=== PATIENT | female | born 1950 | race Caucasian/White ===

== ENCOUNTER 2016-08-08 03:28 | Inpatient (IN) | payer MEDICARE, OTHER ==
--- NOTE | ~2016-08-08 | HP ---
History And Physical [place] [address] [place]. [address] NAME: ROBERTO JOYNER : 46 STATUS : ADM IN [facility]#: [id number] AGE: 66 ADM/REG DATE : 08/08/16 MR#: [id number] REPORT SERV DATE: 08/08/16 DICTATED BY: MELVIN WRIGHT DATE: 08/08/16 REPORT STATUS : Draft TRANSCRIBED BY: MODL DATE: 08/08/16 DATE OF ADMISSION: 08/08/2016 CHIEF COMPLAINT: A 66-year-old female, presenting with abdominal pain and distention, extreme nausea. HISTORY OF PRESENT ILLNESS: The patient's history was obtained through careful interview with the patient and coupled with review of [facility] medical records. The patient states on the evening of 08/03/2016, she began to develop severe nausea, but on the day of admission, it became excruciating by the patient and her 's description. The patient has described mostly left upper quadrant abdominal pain that radiates to the back and throughout the abdomen, sometimes all the way down into her left groin, it a cramping like quality mostly. She describes it as a 10/10 in severity. She has had ostomy output, but it looks atypical, mostly watery now, with no bulky stool seen. She has developed a headache at the top of her head, stating "it is just going to blow off," and she has had an abnormal flushing of her face. No vomiting and states that she is "unable" to vomit because of previous her Brandon fundoplication. No shortness of breath. No chest pain. No cough. No fevers or chills. REVIEW OF SYSTEMS: Otherwise, a 14-point review of systems was obtained and was negative. PAST MEDICAL HISTORY: 1. Coronary artery disease, yet a negative catheterization of the heart in 2012. 2. Ischemic colitis with colon resection, followed by Dr. Joni Linn and Dr. Armenta, geriatric nursing assistant. 3. Diabetes. 4. Hypertension. 5. Severe reflux with Brandon fundoplication. 6. Depression and anxiety. 7. Chronic back pain, resolved. 8. Colon polyps. 9. Peptic ulcer disease. 10.Thoracentesis for pleural effusion. 11.Diastolic congestive heart failure. 12.Urinary tract infection. 13.Upper extremity DVT. 14.Scleroderma. History And Physical [facility] [address] [place]. [address] NAME: ROBERTO JOYNER : 46 STATUS : ADM IN [facility]#: [id number] AGE: 66 ADM/REG DATE : 08/08/16 MR#: [id number] REPORT SERV DATE: 08/08/16 DICTATED BY: MELVIN WRIGHT DATE: 08/08/16 REPORT STATUS : Draft TRANSCRIBED BY: RAMONA DATE: 08/08/16 PAST SURGICAL HISTORY: 1. Significant colon resection with ostomy placement for ischemic colitis, followed by Dr. Joni Linn. 2. Adhesiolysis. 3. Brandon fundoplication. 4. Appendectomy. 5. Cholecystectomy. 6. Hysterectomy. 7. Foot surgery. ALLERGIES: NO KNOWN DRUG ALLERGIES. SOCIAL HISTORY: Quit smoking in 1989. No alcohol abuse. She is . Lives in [place], [place]. Has two sons, four grandchildren. FAMILY HISTORY: Mother at 58 years of age of a heart attack. Father at 84 years of age with prostate cancer. Brother at 52 years of age with cancer. Had a sister with lung cancer. Strong family history of diabetes. CURRENT MEDICATIONS: Unknown at this time, but have been requested by Pharmacy. PHYSICAL EXAMINATION: VITAL SIGNS: Temperature 96.8, pulse 105, blood pressure 238/119, respiratory rate 18, O2 saturation 100% on room air. GENERAL: Very ill and even toxic-appearing female, in evidence of distress secondary to nausea and what appears to be excruciating abdominal pain. HEENT: Noted extreme flushing of her face. Pupils equal, round, and reactive to light. No conjunctival pallor. No scleral icterus. Nares are patent. Oropharynx is clear of obstruction. Dry mucous membranes. NECK: Trachea midline. No thyromegaly. LYMPH: No cervical lymphadenopathy. No supraclavicular lymphadenopathy. No inguinal lymphadenopathy. RESPIRATORY: Clear to auscultation at the bases. No wheezes, rales, or rhonchi. Normal respiratory effort. CARDIOVASCULAR: Tachycardic. Regular rhythm. No murmurs, rubs, or gallops. No extremity edema is appreciated. ABDOMEN: Very tight on examination. Distended. Significant tympanic resonance percussed throughout. The patient has extreme guarding of her abdomen. Does not even want me to lightly touch her belly and there seems to be a rebound effect throughout. It is not "rigid." However, the patient has active bowel tones by my exam, and I do not appreciate any hepatosplenomegaly, although was unable to really get a deep palpation of her abdomen because of guarding. DERMATOLOGICAL: Warm and dry extremities. No pallor. No cyanosis. PSYCHIATRIC: Animated affect, distressed, and anxious mood. Alert and oriented x3. LABORATORY DATA: White blood cell count 11.3, hemoglobin 14, hematocrit 41, platelets 352. History And Physical [place] [address] [facility] [place]. [address] NAME: ROBERTO JOYNER : 46 STATUS : ADM IN [facility]#: [id number] AGE: 66 ADM/REG DATE : 08/08/16 MR#: [id number] REPORT SERV DATE: 08/08/16 DICTATED BY: MELVIN WRIGHT DATE: 08/08/16 REPORT STATUS : Draft TRANSCRIBED BY: RAMONA DATE: 08/08/16 Sodium 137, potassium 4.3, chloride 99, bicarb 25, BUN 21, creatinine 1.08, glucose 146, lipase 285. Troponin negative. Alkaline phosphatase 139. Urinalysis shows only 6 white blood cells. STUDIES: 1. Chest x-ray by my own evaluation shows no acute cardiopulmonary process. 2. EKG by my own evaluation shows sinus rhythm, no major abnormalities. 3. CT scan of the brain without contrast shows no acute intracranial process. 4. CT scan of the abdomen shows distention of the stomach and small bowel, described as "moderate" partial small-bowel obstruction. There is a parastomal hernia. ASSESSMENT AND PLAN: 1. Partial small-bowel obstruction. I ordered an NG tube to be placed in the emergency department. I consulted Dr. Joni Linn, Surgery. I discussed the case with him over the phone at about 6:20 in the morning and had assurances that the patient would be seen early on rounds on the day of admission. I have placed the patient on RF DESIGN ENGINEER Dilaudid because of her severe distress from pain. 2. Hypertensive urgency. Try to obtain better pain control. Use p.r.n. medications. 3. Scleroderma. 4. Chronic ostomy. JAYCE/RAMONA Melvin Wright M.D. / [id number] CC: DO Vasiliy Arteaga M.D. Richard Hunter Jennings III, M.D.
--- NOTE | ~2016-08-08 | CN ---
Consultation Report [place] [id number] [place]. [address] NAME: ROBERTO JOYNER : 46 STATUS : ADM IN [facility]#: [id number] AGE: 66 ADM/REG DATE : 08/08/16 MR#: [id number] REPORT SERV DATE: 08/09/16 DICTATED BY: KEEGAN LOVETT III DATE: 08/09/16 REPORT STATUS : Draft TRANSCRIBED BY: MODL DATE: 08/09/16 DATE OF CONSULTATION: 08/08/2016 ATTENDING PHYSICIAN: Dr. Man. REASON FOR CONSULT: 1. Abdominal pain. 2. Possible bowel obstruction. 3. Recommendation regarding surgical management. HISTORY OF PRESENT ILLNESS: We were asked to see this 66-year-old female emergently in the hospital today for the above reasons. The patient complains of abdominal pain and hypertension. She describes the pain as 10/10. The pain is non-localized in the mid abdomen. The patient states she has had nausea, but she is not able to vomit due to a previous Brandon fundoplication. The patient presented to the emergency room, was found to have evidence for gastric dilatation on CT scan. An NG tube was placed. She states her stomach feels better. The patient has a history of a previous sigmoid colectomy with colostomy secondary to ischemic colitis in 2003, with colostomy closure followed by colostomy replacement in 2011. The patient was last hospitalized in April 2015 for a small bowel obstruction. The patient states she has had some watery output per her colostomy for the last 24 hours. PAST MEDICAL HISTORY: 1. History of sigmoid colectomy with colostomy for ischemic colitis in 2003, status post colostomy reversal, apparently with replacement apparently secondary to anastomotic leak. 2. History of recurrent small bowel obstruction in the past. 3. Anxiety. 4. Depression. 5. Diabetes mellitus. 6. Coronary artery disease. 7. Hypertension. 8. History of myocardial infarction in the past. 9. History of hypercholesterolemia. 10.History of migraine headaches. 11.History of hiatal hernia with Brandon fundoplication. 12.History of deep venous thrombosis in the past. 13.History of chronic back pain. 14.Congestive heart failure. ALLERGIES: NONE. MEDICATIONS: Aspirin, Lipitor, clonidine, Dramamine, Percogesic, metformin, Bystolic, potassium, valsartan. Consultation Report [facility] [address] [place]. [address] NAME: ROBERTO JOYNER : 46 STATUS : ADM IN [facility]#: [id number] AGE: 66 ADM/REG DATE : 08/08/16 MR#: [id number] REPORT SERV DATE: 08/09/16 DICTATED BY: KEEGAN LOVETT III DATE: 08/09/16 REPORT STATUS : Draft TRANSCRIBED BY: RAMONA DATE: 08/09/16 SOCIAL HISTORY: The patient is and retired and lives locally. She has a previous history of tobacco use. She has no history of alcohol use. FAMILY HISTORY: Positive for coronary artery disease and prostate cancer. OBJECTIVE PHYSICAL EXAM: GENERAL: This is a female, in no acute distress. She has flushing of her face, which is chronic for her. She is alert and oriented x3. HEENT: Unremarkable. VITAL SIGNS: Blood pressure 190/88, pulse 90, temperature 99.6. LUNGS: Clear. CARDIAC: Normal. ABDOMEN: Distended but soft and nontender. LABORATORY DATA: White blood cell count 11.3. CT scan of the abdomen and pelvis shows a gastric dilatation. Head CT scan shows no acute process. ASSESSMENT: 1. A 66-year-old female with abdominal pain, with gastric dilatation on CT scan. 2. Hypertension. 3. Coronary artery disease. 4. Anxiety. 5. Depression. 6. Diabetes mellitus. 7. History of myocardial infarction in the past. 8. Chronic back pain. 9. History of congestive heart failure. 10.History of deep venous thrombosis. 11.History of small bowel obstructions in the past. 12.History of sigmoid colectomy with colostomy, colostomy reversal, and colostomy replacement. 13.History of migraine headaches. 14.History of hypercholesterolemia. PLAN: The patient has been admitted and started on parenteral fluids, bowel rest, and NG suction. We will request a CT scan dedicated to the abdomen as her initial CT scan was kidney protocol. We will try to manage this problem nonoperatively if possible. This plan was explained to the patient. Her questions have been answered. She understands and agrees to this plan. ABDULLAHI/RAMONA Keegan Lovett III, M.D. Consultation Report [address] [place] [address] NAME: ROBERTO JOYNER : 46 STATUS : ADM IN PAT#: [id number] AGE: 66 ADM/REG DATE : 08/08/16 MR#: [id number] REPORT SERV DATE: 08/09/16 DICTATED BY: KEEGAN LOVETT III DATE: 08/09/16 REPORT STATUS : Draft TRANSCRIBED BY: RAMONA DATE: 08/09/16 / [id number]
--- NOTE | ~2016-08-08 | DS ---
Discharge Summary [facility] [address] [place]. [address] NAME: ROBERTO JOYNER : 46 STATUS : DIS IN PAT#: [id number] AGE: 66 ADM/REG DATE : 08/08/16 MR#: [id number] REPORT SERV DATE: 08/12/16 DICTATED BY: LATOYA GUILLERMO DATE: 08/11/16 REPORT STATUS : Draft TRANSCRIBED BY: MODL DATE: 08/11/16 ADMISSION DATE: 08/08/2016 DISCHARGE DATE: 08/11/2016 HOSPITAL COURSE: This is a 66-year-old female. She has a known past medical history of sigmoid colectomy with colostomy, colostomy replacement, and colostomy reversal at that time, history of small-bowel obstructions in the past, apparently history of adhesiolysis surgery in the past, history of chronic back pain, history of CAD, diabetes, depression, hypertension, migraine headaches, and hyperlipidemia. The patient comes in with significant nausea, unable to vomit due to previous Brandon fundoplication, seen to have gastric dilation on the CT with small-bowel obstruction noted, previous sigmoid colectomy with colostomy secondary to ischemic colitis in 2003 with colostomy closure in 2011, followed by colostomy replacement at that time. The patient was noted to have SIRS criteria with likely gastritis, improved on Levaquin and Flagyl. The patient's A1c is 7.3, somewhat controlled on metformin as an outpatient. The patient noted to have hypertensive urgency requiring IV antihypertensives, added Imdur and losartan to her regimen as an outpatient, should be more normotensive, did a water-soluble contrast. The patient's KUB improved. NG tube output less and took out NG tube, now tolerating a diet, we will advance today, if tolerates, can go home. Four more days of Levaquin and Flagyl. The patient certainly is at risk and risk for recurrent obstructions due to likely adhesion risk from prior surgeries in addition to her baseline scleroderma status, for which she needs to seek treatment with the [employer] solutions architect. We will make a referral as her risk of scar tissue is higher given the scleroderma. She is not perfect on her saturations. As a result, we will do walking oxygen challenge test. I am concerned about possible scleroderma associated restrictive lung disease. As a result, we will get a pulmonary function test in four to eight weeks. Follow up with PCP in two weeks. Follow up with new [employer] architect as she does not even have one, in four to eight weeks. DISCHARGE MEDICATIONS: Include aspirin 81 p.o. daily, Lipitor 20 p.o. daily, as well as Imdur 30 p.o. daily, as well as losartan 25 p.o. daily, as well as nebivolol 10 p.o. b.i.d., as well as KCl 10 mEq p.o. daily, as well as clonidine 0.1 p.o. t.i.d., reduction from 0.2 p.o. t.i.d. as the patient can have withdrawal hypertension risk with that medication. Continued to consider to wean as an outpatient and maximize other antihypertensives, Levaquin 750 p.o. daily for four more days, Flagyl 500 p.o. t.i.d. for four more days, and metformin 500 p.o. b.i.d. CONSULT: Surgery and agree with the plan. PROCEDURES: None. DISCHARGE DIAGNOSES: Small-bowel obstruction, gastritis, systemic inflammatory response syndrome, scleroderma, hypertension, likely had sepsis due to gastritis, present on Discharge Summary [address] [address] NAME: ROBERTO JOYNER : 46 STATUS : DIS IN PAT#: [id number] AGE: 66 ADM/REG DATE : 08/08/16 MR#: [id number] REPORT SERV DATE: 08/12/16 DICTATED BY: LATOYA GUILLERMO DATE: 08/11/16 REPORT STATUS : Draft TRANSCRIBED BY: RAMONA DATE: 08/11/16 admission. Questions were answered and took over 30 minutes to do. SOM/RAMONA Latoya Guillermo DO / [id number] CC: DO Vasiliy Arteaga M.D.
[2016-08-08 02:26] LABS: BASOPHILS 0.5 %; BASOPHILS ABSOLUTE 0.06 10/3/uL (0.0-0.16); EOSINOPHILS 1.2 %; EOSINOPHILS ABSOLUTE 0.14 10/3/uL (0.0-0.53); IMMATURE GRANULOCYTES 0.4 %; IMMATURE GRANULOCYTES ABSOLUTE 0.04 10/3/uL (0.0-0.11); LYMPHOCYTES ABSOLUTE 3.94 10/3/uL (0.67-4.30); MEAN CORPUS HGB CONC 34.7 g/dL (32.0-36.0); MEAN CORPUSCULAR HEMOGLOB 32.4 pg (26.0-34.0); MEAN CORPUSCULAR VOLUME 93.4 fL (80-100); MEAN PLATELET VOLUME 9.3 fL (9.2-13.0); MONOCYTES 6.5 %; MONOCYTES ABSOLUTE 0.73 10/3/uL (0.21-1.20); NEUTROPHILS 56.4 %; NEUTROPHILS ABSOLUTE 6.36 10/3/uL (2.02-8.40); RBC DISTRIBUTION WIDTH 12.6 % (12.0-16.0); WHITE BLOOD CELLS 11.3 10/3/uL (4.5-10.5)
[2016-08-08 02:28] LABS: ER CBC TAT 0 Hrs 06 MinsNP; HEMATOCRIT 41.2 % (36.0-48.0); HEMOGLOBIN 14.3 g/dL (12.0-16.0); MANUAL DIFF NO %; PLATELET COUNT 352 10/3/uL (150-400); RED CELL COUNT 4.41 10/6/uL (4.0-5.6)
[2016-08-08 02:33] LABS: PARTIAL THROMBO TIME 28.3 SEC (22.5-37.2); PROTIME (NOT ORD) 13.3 SEC (12.0-14.5)
[2016-08-08 02:42] LABS: BUN (BLOOD UREA NITROGEN) 21 MG/DL (6-23); CALCIUM, SERUM 10.1 MG/DL (8.5-10.4); CHEST PAIN PROFILE TAT 0 Hrs 22 Mins; CHLORIDE, SERUM 99 MMOL/L (96-112); CO2 (CARBON DIOXIDE) 25 MMOL/L (24-34); CREATININE 1.08 MG/DL (0.55-1.02); GFR AFRICAN AMERICAN 61 ML/MIN (>=60); GFR NON AFRICAN AMERICAN 53 ML/MIN (>=60); GLUCOSE, SERUM 166 MG/DL (60-99); POTASSIUM, SERUM 4.3 MMOL/L (3.5-5.3); SODIUM, SERUM 137 MMOL/L (135-148); TROPONIN I <0.02 NG/ML (<0.05)
[2016-08-08 03:13] LABS: ALBUMIN 4.6 G/DL (3.5-5.0); SGOT(AST) 26 U/L (5-40); SGPT(ALT) 41 U/L (5-65); TOTAL BILIRUBIN 0.3 MG/DL (0-1.2)
[2016-08-08 03:14] LABS: ALKALINE PHOSPHATASE 139 U/L (45-117); DIRECT BILIRUBIN < 0.1 MG/DL (0.0-0.4); INDIRECT BILIRUBIN(NOT ORDER) 0.2 MG/DL (0.1-0.9); TOTAL PROTEIN 9.4 G/DL (6.0-8.5)
[~2016-08-08 03:28] MED LIST: *UNABLE2; *UNABLE3; ACET500CAP PO; ADVAIR250 INH; AFRIN15 NAS; APRES25 PO; ASAB PO; ATARAX50B PO; ATV1 PO; BENTYL; BENTYL10 PO; BYSTOLIC10 MG PO; CALGLUCTAB PO; CAT1 PO; CAT2 PO; CENTRUM TAB1 TAB PO; CIP5 PO; COMBIVENT RESPIM4 GM INH; COREG12 PO; COREG25 PO; COREG6 PO; COZAAR100 MG PO; D100; DEMA10T PO; DIABETA5 PO; DIGITEK0.125 MG PO; DIMENHY50I PO; DOMPERIDONE PO; DRAMAMINE PO; DRAMAMINE50 M1 PO; DURA12 TOP; DURA25 TOP; DURA50 TOP; DURACLON PO; ENDOCET1 TAB PO; FIORICET PO; FLAG500TAB PO; FLAGIV500 IV; FLUCON2 PO; FORTAMET500 MG PO; GLUCOPHXR PO; GLUCPH PO; HALF81 PO; HCTZ12.5 PO; HEARTBURN MED; HEARTBURN MED PO; HYDROCHLOROT12.5 MG PO; HYOMAX-SL0.125 MG PO; HYZAAR 50/12.51 TAB PO; HYZAAR1 TAB PO; IMDUR30 PO; KDUR10 PO; KLOR-CON 1010 MEQ PO; KLOR-CON M1010 MEQ PO; L40 PO; LAN125 PO; LEVAQUIN750 MG PO; LEVSINTAB PO; LEVSINTAB PO/SL; LEVSINTAB SL; LIPITOR10 PO; LORAZEPAM PO; LORTAB 5 PO; LYRICA PO; LYRICA100 MG PO; LYRICA50 PO; MICRO-K10 MEQ PO; NATURA2 OP; NEUR300 PO; NEXIUM20 M1 PO; NITROMIST400 MCG SL; NITROSPRAY SL; NORV10 PO; NORV5 PO; NORVASC; OCEAN NAS; P125 PO; PERCOGESIC TAB1 TAB PO; PERCOGESIC1 TAB PO; PHENERGAN PO; PHENOBARB32.4 MG PO; PLAVIX; PLAVIX PO; PR25 PO; PRAV10 PO; PREM625 PO; PREMARIN; PROTONIX PO; RAN500 PO; REFRESH OPH; REFRESH PLUS0.5 % OP; REG PO; RISP0.5 PO; SUCR PO; SYMAX-SL0.125 MG SL; TEARS NATURA OPH; TOPXL50 PO; V5 PO; VISINE0.05 % OPH; VITAMIN A; VITAMIN B12; VITAMIN C; VITAMIN D; VIVELLE SY0.075 MG/2 TOP; X25 PO; XIFAXAN550 MG PO; ZANAFLEX 4 MG TA4 MG PO; ZANAFLEX2 MG PO; ZOFRAN ODT4 MG PO; ZOFRAN PO; ZOFRAN4 PO; ZOFRAN8 PO; ZOL50 PO
[2016-08-08 03:57] LABS: ASCORBIC ACID (UR NOT ORDER) NEG (NEG); BILIRUBIN, URINE NEGATIVE (NEG); ER URINALYSIS TAT 0 Hrs 00 Mins; KETONE, URINE NEGATIVE (NEG); LEUKOCYTE ESTERASE(NOT OR SMALL (NEG); NITRITE (URINE) NEG (NEG); WBC (NOT ORDERED) (RFLEX) 6 (0-5)
[2016-08-08] MEDS ORDERED: LIPITOR20 (06:06)
[2016-08-08] MEDS ORDERED: KLOR-CON 1010 MEQ PO (06:10)
[2016-08-08] MEDS ORDERED: BYSTOLIC10 MG PO (06:11)
[2016-08-08] MEDS ORDERED: VALSARTAN/HCTZ (06:16)
[2016-08-08] MEDS ORDERED: PERCOGESIC PO (06:23)
[2016-08-08] MEDS ORDERED: DIMENHY50I PO (06:25)
[2016-08-08 13:50] LABS: BASOPHILS 0.2 %; BASOPHILS ABSOLUTE 0.04 10/3/uL (0.0-0.16); EOSINOPHILS 0.4 %; EOSINOPHILS ABSOLUTE 0.06 10/3/uL (0.0-0.53); HEMATOCRIT 40.7 % (36.0-48.0); HEMOGLOBIN 14.1 g/dL (12.0-16.0); IMMATURE GRANULOCYTES 0.4 %; IMMATURE GRANULOCYTES ABSOLUTE 0.06 10/3/uL (0.0-0.11); LYMPHOCYTES 25.3 %; LYMPHOCYTES ABSOLUTE 4.09 10/3/uL (0.67-4.30); MEAN CORPUS HGB CONC 34.6 g/dL (32.0-36.0); MEAN CORPUSCULAR HEMOGLOB 31.8 pg (26.0-34.0); MEAN CORPUSCULAR VOLUME 91.9 fL (80-100); MEAN PLATELET VOLUME 9.1 fL (9.2-13.0); MONOCYTES 6.8 %; NEUTROPHILS 66.9 %; PLATELET COUNT 352 10/3/uL (150-400); RED CELL COUNT 4.43 10/6/uL (4.0-5.6); WHITE BLOOD CELLS 16.2 10/3/uL (4.5-10.5)
[2016-08-08 13:51] LABS: MANUAL DIFF NO %
[2016-08-08 13:59] LABS: PARTIAL THROMBO TIME 32.4 SEC (22.5-37.2); PROTIME (NOT ORD) 13.5 SEC (12.0-14.5)
[2016-08-08 14:20] LABS: A/G RATIO 1.2 (0.7-1.9); ALBUMIN 4.9 G/DL (3.5-5.0); CALCIUM, SERUM 9.8 MG/DL (8.5-10.4); CHLORIDE, SERUM 102 MMOL/L (96-112); CO2 (CARBON DIOXIDE) 23 MMOL/L (24-34); CREATININE 1.12 MG/DL (0.55-1.02); GFR AFRICAN AMERICAN 58 ML/MIN (>=60); GFR NON AFRICAN AMERICAN 50 ML/MIN (>=60); GLOBULIN 4.1 G/DL (2.5-4.1); GLUCOSE, SERUM 173 MG/DL (60-99); POTASSIUM, SERUM 4.1 MMOL/L (3.5-5.3); SGOT(AST) 65 U/L (5-40); SGPT(ALT) 67 U/L (5-65); SODIUM, SERUM 141 MMOL/L (135-148); TOTAL BILIRUBIN 0.6 MG/DL (0-1.2); TROPONIN I <0.02 NG/ML (<0.05)
[2016-08-08 14:23] LABS: ALKALINE PHOSPHATASE 176 U/L (45-117); BUN (BLOOD UREA NITROGEN) 17 MG/DL (6-23)
[2016-08-09 07:45] LABS: BASOPHILS 0.1 %; BASOPHILS ABSOLUTE 0.01 10/3/uL (0.0-0.16); EOSINOPHILS 0.1 %; EOSINOPHILS ABSOLUTE 0.01 10/3/uL (0.0-0.53); HEMATOCRIT 37.7 % (36.0-48.0); IMMATURE GRANULOCYTES 0.3 %; IMMATURE GRANULOCYTES ABSOLUTE 0.04 10/3/uL (0.0-0.11); LYMPHOCYTES 17.3 %; LYMPHOCYTES ABSOLUTE 2.46 10/3/uL (0.67-4.30); MEAN CORPUS HGB CONC 34.5 g/dL (32.0-36.0); MEAN CORPUSCULAR HEMOGLOB 32.5 pg (26.0-34.0); MEAN CORPUSCULAR VOLUME 94.3 fL (80-100); MEAN PLATELET VOLUME 8.9 fL (9.2-13.0); MONOCYTES 8.5 %; MONOCYTES ABSOLUTE 1.21 10/3/uL (0.21-1.20); NEUTROPHILS 73.7 %; NEUTROPHILS ABSOLUTE 10.49 10/3/uL (2.02-8.40); PLATELET COUNT 285 10/3/uL (150-400); WHITE BLOOD CELLS 14.2 10/3/uL (4.5-10.5)
[2016-08-09 07:47] LABS: MANUAL DIFF NO %
[2016-08-09 07:53] LABS: BUN (BLOOD UREA NITROGEN) 12 MG/DL (6-23); CALCIUM, SERUM 9.4 MG/DL (8.5-10.4); CHLORIDE, SERUM 102 MMOL/L (96-112); CO2 (CARBON DIOXIDE) 24 MMOL/L (24-34); GFR AFRICAN AMERICAN 60 ML/MIN (>=60); GFR NON AFRICAN AMERICAN 52 ML/MIN (>=60); GLUCOSE, SERUM 213 MG/DL (60-99); PHOSPHORUS, SERUM 2.6 MG/DL (2.5-4.5); POTASSIUM, SERUM 3.7 MMOL/L (3.5-5.3); SODIUM, SERUM 140 MMOL/L (135-148)
[2016-08-10 06:39] LABS: BASOPHILS 0.2 %; BASOPHILS ABSOLUTE 0.02 10/3/uL (0.0-0.16); EOSINOPHILS 0.3 %; EOSINOPHILS ABSOLUTE 0.03 10/3/uL (0.0-0.53); HEMATOCRIT 37.3 % (36.0-48.0); HEMOGLOBIN 12.6 g/dL (12.0-16.0); IMMATURE GRANULOCYTES 0.2 %; IMMATURE GRANULOCYTES ABSOLUTE 0.02 10/3/uL (0.0-0.11); LYMPHOCYTES 25.8 %; LYMPHOCYTES ABSOLUTE 2.77 10/3/uL (0.67-4.30); MEAN CORPUS HGB CONC 33.8 g/dL (32.0-36.0); MEAN CORPUSCULAR HEMOGLOB 32.4 pg (26.0-34.0); MEAN CORPUSCULAR VOLUME 95.9 fL (80-100); MEAN PLATELET VOLUME 9.1 fL (9.2-13.0); MONOCYTES ABSOLUTE 1.07 10/3/uL (0.21-1.20); NEUTROPHILS 63.5 %; NEUTROPHILS ABSOLUTE 6.83 10/3/uL (2.02-8.40); PLATELET COUNT 269 10/3/uL (150-400); RED CELL COUNT 3.89 10/6/uL (4.0-5.6); WHITE BLOOD CELLS 10.7 10/3/uL (4.5-10.5)
[2016-08-10 06:45] LABS: BUN (BLOOD UREA NITROGEN) 11 MG/DL (6-23); CALCIUM, SERUM 9.5 MG/DL (8.5-10.4); CHLORIDE, SERUM 101 MMOL/L (96-112); CO2 (CARBON DIOXIDE) 24 MMOL/L (24-34); GFR AFRICAN AMERICAN 76 ML/MIN (>=60); GFR NON AFRICAN AMERICAN 66 ML/MIN (>=60); GLUCOSE, SERUM 185 MG/DL (60-99); PHOSPHORUS, SERUM 2.7 MG/DL (2.5-4.5); POTASSIUM, SERUM 3.4 MMOL/L (3.5-5.3); SODIUM, SERUM 139 MMOL/L (135-148)
[2016-08-10 06:52] LABS: MANUAL DIFF NO %
[2016-08-11 07:59] LABS: BASOPHILS 0.2 %; BASOPHILS ABSOLUTE 0.02 10/3/uL (0.0-0.16); EOSINOPHILS 0.1 %; EOSINOPHILS ABSOLUTE 0.01 10/3/uL (0.0-0.53); HEMOGLOBIN 10.6 g/dL (12.0-16.0); IMMATURE GRANULOCYTES 0.1 %; IMMATURE GRANULOCYTES ABSOLUTE 0.01 10/3/uL (0.0-0.11); LYMPHOCYTES 16.7 %; MEAN CORPUS HGB CONC 32.8 g/dL (32.0-36.0); MEAN CORPUSCULAR HEMOGLOB 30.8 pg (26.0-34.0); MEAN CORPUSCULAR VOLUME 93.9 fL (80-100); MEAN PLATELET VOLUME 8.9 fL (9.2-13.0); MONOCYTES 7.5 %; MONOCYTES ABSOLUTE 0.81 10/3/uL (0.21-1.20); NEUTROPHILS 75.4 %; NEUTROPHILS ABSOLUTE 8.15 10/3/uL (2.02-8.40); PLATELET COUNT 201 10/3/uL (150-400); RBC DISTRIBUTION WIDTH 12.9 % (12.0-16.0); RED CELL COUNT 3.44 10/6/uL (4.0-5.6); WHITE BLOOD CELLS 10.8 10/3/uL (4.5-10.5)
[2016-08-11 08:00] LABS: HEMATOCRIT 32.3 % (36.0-48.0); MANUAL DIFF NO %
[2016-08-11 08:27] LABS: BUN (BLOOD UREA NITROGEN) 12 MG/DL (6-23); CALCIUM, SERUM 8.7 MG/DL (8.5-10.4); CHLORIDE, SERUM 102 MMOL/L (96-112); CO2 (CARBON DIOXIDE) 25 MMOL/L (24-34); CREATININE 0.73 MG/DL (0.55-1.02); GFR AFRICAN AMERICAN 98 ML/MIN (>=60); GFR NON AFRICAN AMERICAN 85 ML/MIN (>=60); GLUCOSE, SERUM 159 MG/DL (60-99); POTASSIUM, SERUM 3.3 MMOL/L (3.5-5.3); SODIUM, SERUM 141 MMOL/L (135-148)
[2016-08-11] MEDS ORDERED: LEVAQUIN750 MG PO (14:04)
[2016-08-11] MEDS ORDERED: FLAG500TAB PO (14:05)
[2016-08-11] MEDS ORDERED: PERCOGESIC TAB1 TAB PO ×2 (14:15→14:54)
[2016-08-11] MEDS ORDERED: IMDUR30 PO (14:17)
[2016-08-11] MEDS ORDERED: COZ25 PO (14:18)
[2017-03-11] MEDS ORDERED: BYDUREON2 MG SQ (13:27)
[2017-03-11] MEDS ORDERED: PR25 PO (13:27)
[2017-03-11] MEDS ORDERED: ZANAFLEX 4 MG TA4 MG PO (13:27)
[2017-03-11] MEDS ORDERED: LIPITOR20 PO (13:28)
[2017-03-11] MEDS ORDERED: BYSTOLIC10 MG PO (13:29)
[2017-03-11] MEDS ORDERED: DIOVAN HC2 PO (13:29)
[2017-03-11] MEDS ORDERED: DURA25 TOP (13:29)
[2017-03-11] MEDS ORDERED: KDUR10 PO (13:29)
[2017-03-11] MEDS ORDERED: GLUCOPHAGE1000 MG PO (13:30)
[2017-03-11] MEDS ORDERED: PERCOGESIC TAB1 TAB PO (13:30)
[2017-03-11] MEDS ORDERED: ASAB PO (13:30)
[2017-03-14] MEDS ORDERED: IMDUR30 PO (09:24)
== END 2016-08-11 16:18 | disposition home or self-care (01) | DRG 872 ==
LOC: ER 03:28 → 7NO 05:52
PROVIDERS: Hospitalist; Internal Medicine; Specialist
DX: A41.9 Sepsis, unspecified organism (principal); K56.60 Unspecified intestinal obstruction; I50.32 Chronic diastolic (congestive) heart failure; M34.9 Systemic sclerosis, unspecified; I16.0 Hypertensive urgency; I25.10 Atherosclerotic heart disease of native coronary artery without angina pectoris; F32.9 Major depressive disorder, single episode, unspecified; E78.5 Hyperlipidemia, unspecified; K29.70 Gastritis, unspecified, without bleeding; E11.9 Type 2 diabetes mellitus without complications; F41.9 Anxiety disorder, unspecified; Z86.010 Personal history of colon polyps; Z86.718 Personal history of other venous thrombosis and embolism; Z79.84 Long term (current) use of oral hypoglycemic drugs
CPT/HCPCS: 70450; 71020; 74000; 74020; 74176; 74240; 80048; 80053; 80076; 81001; 82962; 83036; 83605; 83690; 83735; 84100; 84145; 84443; 84484; 85025; 85610; 85730; 87086; 93005; 96372; 96374; 99285; A9270-GY; C9113; J0360; J1170; J1956; J2405; J2765

== ENCOUNTER 2016-09-05 09:21 | Inpatient (IN) | payer MEDICARE, OTHER ==
--- NOTE | ~2016-09-05 | DS ---
Discharge Summary [facility] [address] [place]. [address] NAME: ROBERTO JOYNER : 46 STATUS : DIS IN PAT#: [id number] AGE: 66 ADM/REG DATE : 09/05/16 MR#: [id number] REPORT SERV DATE: 09/09/16 DICTATED BY: DATE: REPORT STATUS : Draft TRANSCRIBED BY: MODL DATE: 09/08/16 ADMISSION DATE: 09/05/2016 DISCHARGE DATE: 09/08/2016 DISCHARGE DIAGNOSES: 1. Abdominal pain. 2. Hypertension. 3. Acute kidney injury. 4. Lactic acidosis. 5. Chronic pain. 6. History of ischemic colitis with colectomy and colostomy. CONSULTING PHYSICIANS: Include Dr. Bryant Armenta. DISCHARGE MEDICATIONS: Includes aspirin 81 mg p.o. daily, Duragesic 25 mcg patch every 72 hours, Imdur 30 mg p.o. daily, Cozaar 25 mg p.o. daily, Bystolic 10 mg p.o. daily, Klor-Con 10 10 mEq p.o. daily, Percogesic one tablet p.o. daily p.r.n. for pain, Catapres 0.1 mg p.o. p.r.n. for hypertension, Dramamine 50 mg p.o. p.r.n. for vertigo, metformin 1000 mg p.o. every 48 hours, Phenergan 25 mg p.o. daily p.r.n. for nausea and vomiting, Zanaflex 4 mg p.o. daily p.r.n. for muscle spasms, Exenatide 2 mg subcu every seven days, Ativan 1 mg p.o. at bedtime as needed p.r.n. for anxiety, multivitamin one tablet p.o. daily, and Levaquin 750 mg p.o. daily x5 days. IMAGING STUDIES: Includes CT of the abdomen and pelvis without contrast. There were multiple gas-filled loops of small bowel throughout the abdomen and scattered air-fluid levels suspicious of an ileus with a stable left renal cyst. KUB was also performed showed no evidence of acute abnormality or obstruction. For full history and physical, please refer to Dr. Eric Johnson's dictation on 09/05/2016, please also see Dr. Samson Armenta's consultation dictation on 09/06/2016. HOSPITAL COURSE: The patient initially presented with severe abdominal pain with a white blood cell count of 21,000 and elevated lactate level. She was admitted for possible sepsis, placed on Zosyn IV, and given Dilaudid p.r.n. for pain. Her pain has subsequently resolved. Her white blood cell count has normalized. Blood cultures were drawn which were negative. One bottle was contaminated with micrococcus species, but sensitivity was not performed due to contamination. Dr. Bryant Ortiz is her primary banquet server. He has been seeing this patient for 30 years. She has had multiple admissions for the same problem and resolves itself over several days. He noted that it is okay to discharge her today and she can follow up with him as needed. I will continue antibiotics. I will give her Levaquin 750 mg p.o. daily for five more days considering her white count was elevated to 21,000 and she did have lactic acidosis. Lactic acidosis could have been due to dehydration. She also had an acute kidney injury. Her creatinine was 2.08 and is now 0.98 that has resolved with IV fluids. She will need to follow up with her primary care provider for further monitoring of her creatinine levels. Her lactic acidosis has resolved. Initially, her lactate was 4.9, now it is 1.9. She also initially was extremely hypertensive with systolic blood pressure 220s to 230s range. Dr. Johnson initially Discharge Summary [address] [address] NAME: ROBERTO JOYNER : 46 STATUS : DIS IN PAT#: [id number] AGE: 66 ADM/REG DATE : 09/05/16 MR#: [id number] REPORT SERV DATE: 09/09/16 DICTATED BY: DATE: REPORT STATUS : Draft TRANSCRIBED BY: MODL DATE: 09/08/16 started 24-hour urine to rule out pheochromocytoma and also was testing for porphyrias. According to Dr. Armenta, she has had multiple workups for pheochromocytoma as well as porphyrias and they have all been negative. So, we discontinued the workup for this. Her current blood pressures are ranging between 140s and 160s systolic. She will need to follow up with her primary care provider for further management of this. I will continue her home antihypertensive medications upon discharge. Her chronic pain is controlled with a fentanyl patch as well as p.r.n. narcotic medications. I will continue her home regimen. If she has any further problems with this, she can follow up with her primary care physician. HATTIE/RAMONA Brian Grace NP / [id number] CC: MD Vasiliy Chacon M.D. Michael Goodman, M.D.
--- NOTE | ~2016-09-05 | DS ---
Discharge Summary [facility] [address] [place]. [address] NAME: ROBERTO JOYNER : 46 STATUS : DIS IN PAT#: [id number] AGE: 66 ADM/REG DATE : 09/05/16 MR#: [id number] REPORT SERV DATE: 09/09/16 DICTATED BY: DATE: REPORT STATUS : Draft TRANSCRIBED BY: MODL DATE: 09/08/16 ADMISSION DATE: 09/05/2016 DISCHARGE DATE: 09/08/2016 DISCHARGE DIAGNOSES: 1. Abdominal pain. 2. Fevers, chills, and leukocytosis. 3. Hypertension. 4. Chronic pain. 5. History of ischemic colitis, status post colectomy and colostomy. 6. Acute kidney injury. CONSULTING PHYSICIANS: Include Dr. Bryant Armenta with Gastroenterology. DISCHARGE MEDICATIONS: Include aspirin 81 mg p.o. daily; Duragesic 25 mcg transdermal patch, one patch q.72 hours; Imdur 30 mg p.o. daily; Cozaar 25 mg p.o. daily; Bystolic 10 mg p.o. daily; Klor-Con 10 mEq p.o. daily; Percogesic 1 tab p.o. daily p.r.n. for pain; Catapres 0.1 mg p.o. p.r.n. for blood pressure; Dramamine 50 mg p.o. p.r.n. for vertigo; Glucophage 1000 mg p.o. q.48 hours; Phenergan 25 mg p.o. daily p.r.n. for nausea and vomiting; Zanaflex 4 mg p.o. daily p.r.n. for muscle spasms; exenatide 2 mg subcu q.7 days; Ativan 1 mg p.o. at bedtime p.r.n. for anxiety; multivitamin 1 tab p.o. daily, and Levaquin 750 mg p.o. daily x5 days. IMAGING: Includes CT of the abdomen and pelvis without contrast. This demonstrated multiple gas filled loops of small bowel throughout the abdomen with scattered air-fluid levels, suspicious for ileus. KUB was also performed that had nonspecific gas pattern and no evidence of obstruction. For full H and P, please refer to Dr. Eric Johnson's dictation on 09/05/2016 and please also see Dr. Bryant Armenta's consultation report from 09/06/2016. HOSPITAL COURSE/PROBLEM LIST: The patient initially presented with severe abdominal pain. Her white blood cell count is 21,000. She also had an elevated lactate level. Blood cultures were drawn. We ruled out sepsis. Blood cultures do not grow anything. She did have one contaminated bottle that grew micrococcus species, but there was not a sensitivity performed due to contamination. The patient has been afebrile during her hospital stay. Her white blood cell count has normalized and she has been on Zosyn IV since admission although we do not have an infectious cause. Because of the initial elevated white blood cell count and lactic acidosis, I will continue the patient on 5 more days of Levaquin p.o. after discharge. Initially, the patient also had an acute kidney injury with a creatinine of 2.08, today is 0.98, likely this is from dehydration and lack of p.o. intake from the abdominal pain. The patient has a history of ischemic colitis with colectomy and colostomy. She has been a patient of Dr. Bryant Armenta's for 30 years. She has had multiple abdominal pain episodes for which she has been admitted to the hospital and he has followed her during every admission. He attributes her abdominal pain to massive adhesions. Since she had symptomatically improved, he is okay with discharging her today. She can follow up with him p.r.n. if the pain returns or continues. As mentioned above, she did come in with lactic acidosis. Discharge Summary [address] [address] NAME: ROBERTO JOYNER : 46 STATUS : DIS IN PAT#: [id number] AGE: 66 ADM/REG DATE : 09/05/16 MR#: [id number] REPORT SERV DATE: 09/09/16 DICTATED BY: DATE: REPORT STATUS : Draft TRANSCRIBED BY: MODBryant DATE: 09/08/16 CLR/RAMONA Brian Grace NP / [id number] CC: MD Vasiliy Chacon M.D.
--- NOTE | ~2016-09-05 | HP ---
History And Physical [address] [place]. [address] NAME: ROBERTO JOYNER : 46 STATUS : ADM IN [facility]#: [id number] AGE: 66 ADM/REG DATE : 09/05/16 MR#: [id number] REPORT SERV DATE: 09/05/16 DICTATED BY: LOAN GARVEY DATE: 09/05/16 REPORT STATUS : Draft TRANSCRIBED BY: MODL DATE: 09/05/16 DATE OF ADMISSION: 09/05/2016 REASON FOR ADMISSION: Extremis with acute flushing redness, abdominal pain, nausea, diarrhea, suspected septicemia with acute renal failure. HISTORY OF PRESENT ILLNESS: This is a 66-year-old white female, who was just discharged from the hospital about three weeks ago. She had been hospitalized with abdominal pain, distention, and nausea. Year before last, she had 5 to 6 episodes of this and was admitted to the hospital. Dr. Armenta has considered a carcinoid tumor and he looked for this with a GI cam endoscopy and that did not find such. She began having nausea about three days ago, was unable to eat, she is unable to vomit because of her Brandon fundoplication in the past. She states her scleroderma does not give her much trouble though this has been diagnosed in the past. She presents to the emergency room where she was evaluated initially by Dr. Chloe Urban. She does have a Port-A-Cath. She had a sigmoid colectomy and colostomy secondary to ischemic colitis in the past. She has had multiple suspected small-bowel obstructions, however with her CT scan of the abdomen, her abdomen showed only evidence of ileus with air in the colon all the way to the ostomy. Her blood pressure was initially elevated at 228/114 with flushing. The symptoms and signs are similar to those seen on the previous presentation and those similar in the past. She is sweating now and flushing but her temperature on admission was 97 with a heart rate of 126, respiratory rate 18. PAST MEDICAL HISTORY: She has had coronary disease but negative cardiac catheterization in 2016. She had ischemic colitis with resection by Dr. Eliezer Linn. Dr. Armenta has been following her as well since that time. She has diabetes on Bydureon, many of her medicines are new. She had severe reflux with a Brandon fundoplication in the past. She has depression and anxiety, chronic back pain, history of colonic polyps, peptic ulcer disease, history of pleural effusion with a thoracentesis, diastolic congestive heart failure, urinary tract infection, scleroderma, and history of DVT of the right upper extremity where the Port-A-Cath is. She has had cholecystectomy, hysterectomy, foot surgery, appendectomy, and adhesiolysis for obstruction. HOME MEDICATIONS: Include the following: Percogesic 1 p.o. p.r.n. for headache pain; aspirin 81 mg p.o. daily; clonidine 0.1 mg p.o. p.r.n. blood pressure elevation; Dramamine 50 mg t.i.d. p.r.n. dizziness; Bydureon 2 mg subcu every 7 days; fentanyl patch 25 mcg per History And Physical [address] [address] NAME: ROBERTO JOYNER : 46 STATUS : ADM IN [facility]#: [id number] AGE: 66 ADM/REG DATE : 09/05/16 MR#: [id number] REPORT SERV DATE: 09/05/16 DICTATED BY: LOAN GARVEY DATE: 09/05/16 REPORT STATUS : Draft TRANSCRIBED BY: RAMONA DATE: 09/05/16 24 hours, repeated every 72 hours; isosorbide mononitrate ER 30 mg p.o. daily; lorazepam 1 mg p.o. at bedtime as needed; losartan 25 mg p.o. daily; metformin 1000 mg p.o. q. 48 hours; multivitamin without minerals one a day; Nebivolol 10 mg p.o. daily; potassium chloride 10 mEq p.o. daily; Promethazine 25 mg p.o. p.r.n. nausea; and Zanaflex 4 mg p.r.n. muscle spasms. ALLERGIES: NONE ARE KNOWN. SOCIAL HISTORY: She is . Lives with in [place]. Has two children, sons. She quit smoking in 1989. No history of alcohol abuse. FAMILY HISTORY: Her mother at age 58 of heart attack. Her father at 84 of prostate cancer. Brother at 52 with cancer and she has a sister with lung cancer. Family history of diabetes is positive. REVIEW OF SYSTEMS: She has had flushing and this seems to bother her more, the flushing and redness. She has minimal abdominal pain compared to the flushing, redness, and sweating. She has had no swelling in the lower extremities. No melena, hematemesis, fits, seizures, convulsions, or unilateral weakness. She is nauseated mildly but having diarrhea type stool from her ostomy site. No chest pain or shortness of breath, otherwise negative review of systems. PHYSICAL EXAMINATION: VITAL SIGNS: Her blood pressure was 220/115 at presentation. HEENT: EOMI. Sclerae clear. Conjunctivae pink. NECK: No bruit without any JVD. CHEST: Clear to A and P. HEART: Regular S1, S2 without murmur, gallop, or click. BREASTS: Grossly without mass. ABDOMEN: Soft, mildly tender diffusely. EXTREMITIES: Have no edema. GENERAL: The patient is very red with a cutaneous macular rash over her whole body that appears to be telangiectatic in nature. It does eun. She is red and sweating and appears to be in extremis. NEUROLOGIC: She withdraws to plantar stimulation. [place] is equal and symmetric bilaterally. Coordination intact. She has no tremor. She is symmetric neurologically. LYMPHATICS: There is no adenopathy palpable. The thyroid is not palpable. LABORATORY DATA: CT scan of her abdomen showed air through the colon more consistent with ileus. There are scattered air fluid levels throughout the colon with gas present. She has previously had colon surgery with left lower quadrant colostomy, colon appears to be stapled off the proximal descending colon. Descending colon is decompressed. Status post cholecystectomy and hysterectomy and Brandon fundoplication. Stable left renal cyst. Urinalysis shows specific gravity 1.017, pH 5, negative diff, less than 1 white cell or red cell, and 4 hyaline casts. Lactate level was elevated at 4.9. Comprehensive metabolic panel showed a creatinine of 2.08 with a BUN of 50. Sodium 139, potassium 4.6, chloride 101, her History And Physical [address] [facility] [place]. [address] NAME: ROBERTO JOYNER : 46 STATUS : ADM IN [facility]#: [id number] AGE: 66 ADM/REG DATE : 09/05/16 MR#: [id number] REPORT SERV DATE: 09/05/16 DICTATED BY: LOAN GARVEY DATE: 09/05/16 REPORT STATUS : Draft TRANSCRIBED BY: MODL DATE: 09/05/16 glucose is 235. Protein 9.3, globulin 4.5 g/dL. Alkaline phosphatase was 128. [place] [address], hemoglobin 14.1, hematocrit 38.9, and platelets were 353,000. ASSESSMENT: 1. Fever, chills, sweating, leukocytosis, suspicious for septicemia, we will draw another set of blood cultures with rigors noted now. This appears to have a systemic inflammatory response. We will check sedimentation rate, procalcitonin, D-dimer test. 2. Colostomy with descending colostomy left lower quadrant. 3. Gastroesophageal reflux disease, status post Brandon fundoplication in the past. 4. Flushing, sweating with rash in extremis. I wonder about a neuroendocrine tumor such as carcinoid or a pheochromocytoma associated with a high blood pressure. We will get a urine 24 hour for 5-HIAA 24-hour urine for histamine and followup when the patient is out of extremis with a 24-hour urine for catecholamines or a plasma catecholamine if it can be drawn in the hospital without disturbing her. 5. Leukocytosis. 6. Lactic acidosis. CO2 is 1970. Acute renal failure. We will hold the metformin and watch the creatinine if it falls from the 2 range, consider restarting it back. 7. Brandon fundoplication. She cannot vomit though she is somewhat nauseated. 8. Hot flashes is the worst problem that she describes of the whole syndrome. PLAN: She is started on Zosyn in the emergency room. We will continue this and adjust it for renal failure. We will consult Dr. Linn and Dr. Armenta who know her from the past. She has had some back pain that seems to occur prior to the extremis with her during the prior hospitalizations. She now has back and hip pain and the sweating. I will do a porphyria screen both serum and urine. She may have some vasospastic element that may have even caused her initial ischemic colitis in association with the scleroderma. Urine for 5 HIAA histamine are ordered. Urine and serum screen for porphyria are ordered. We may need to consider plasma catecholamines after the patient is out of acute distress. KELLY/EMERYL Loan Garvey M.D. / [id number] CC: MD Vasiliy Garcia II, M.D. Richard Hunter Jennings III, M.D. Michael Goodman, M.D.
--- NOTE | ~2016-09-05 | CN ---
Consultation Report [id number] [facility] [place]. [address] NAME: ROBERTO JOYNER : 46 STATUS : ADM IN PAT#: [id number] AGE: 66 ADM/REG DATE : 09/05/16 MR#: [id number] REPORT SERV DATE: 09/06/16 DICTATED BY: KEEGAN LOVETT III DATE: 09/06/16 REPORT STATUS : Draft TRANSCRIBED BY: MODL DATE: 09/06/16 CONSULTATION REPORT DATE OF CONSULTATION: 09/06/2016 REASON FOR CONSULT: 1. Abdominal pain. 2. Possible bowel obstruction. 3. Recommendation regarding surgical management. HISTORY OF PRESENT ILLNESS: I am asked to see this 66-year-old female in the hospital today for the above reasons. The patient is admitted hospital with nausea, flushing, and vague abdominal pain. The patient was discharged from here about three weeks ago with apparent small bowel obstruction versus ileus, which was treated nonoperatively. On this admission, the patient's history is very vague. She describes poor appetite. Her describes that the patient is becoming very anxious and flushing. She presented to the emergency room and a CT scan of the abdomen and pelvis was performed, which showed evidence for possible small bowel ileus. The patient has a history of recurrent admissions for partial small bowel obstruction in the past, which have been treated nonoperatively. She has a history of flushing and severe anxiety. The etiology for this is unclear. She has a history of recurrent episodes of abdominal pain of unclear etiology. PAST MEDICAL HISTORY: 1. History of recurrent small bowel obstructions in the past. 2. History of ischemic colitis requiring colectomy with colostomy. 3. History of colostomy closure followed by reversal. 4. Anxiety. 5. Depression. 6. Coronary artery disease. 7. Hypertension. 8. Diabetes mellitus. 9. History of myocardial infarction in the past. 10.History of migraine headaches. 11.Hypercholesterolemia. 12.History of hiatal hernia repair with Brandon fundoplication. 13.History of deep venous thrombosis in the past. 14.Chronic back pain. 15.Congestive heart failure. Consultation Report [id number] [facility] [place]. [address] NAME: ROBERTO JOYNER : 46 STATUS : ADM IN PAT#: [id number] AGE: 66 ADM/REG DATE : 09/05/16 MR#: [id number] REPORT SERV DATE: 09/06/16 DICTATED BY: KEEGAN LOVETT III DATE: 09/06/16 REPORT STATUS : Draft TRANSCRIBED BY: RAMONA DATE: 09/06/16 MEDICATIONS: Include aspirin, Lipitor, clonidine, Dramamine, Percogesic, metformin, Bystolic, potassium, and valsartan. SOCIAL HISTORY: The patient is and retired and lives locally. She has a previous history of tobacco abuse. She has no history of alcohol use. FAMILY HISTORY: Positive for coronary artery disease and prostate cancer. PHYSICAL EXAMINATION: GENERAL: Reveals a female who appears uncomfortable. She is alert, but appears extremely anxious. She has flushing of her cheeks. She is not able to give a good history. VITAL SIGNS: Temperature 97.8, pulse 79, and blood pressure 113/58. HEENT: Otherwise, unremarkable. LUNGS: Clear. CARDIAC: Unremarkable. ABDOMEN: Soft and completely nontender. EXTREMITIES: Normal. LABORATORY DATA: CT scan of the abdomen and pelvis on admission, which I reviewed shows evidence for possible ileus. The jejunum and ileum were noted to be mildly gas distended with some scattered air-fluid levels. There is noted be gas within the colon. No acute findings are noted. There is noted to be evidence for previous colon resection, cholecystectomy, and hysterectomy. The patient's white blood cell count on admission was elevated at 21,000. This morning it is decreased to 14.4 and hematocrit 37. Electrolytes on admission are remarkable for an elevated creatinine of 2.8. It has decreased to 1.32 this morning. ASSESSMENT: 1. A 66-year-old female with abdominal pain, ileus by CT scan, associated with leukocytosis and flushing. The etiology for this is unclear. 2. History of recurrent episodes of abdominal pain. 3. History of evaluation for porphyria with elevated porphyrins in the past. 4. Anxiety. 5. History of depression. 6. History of deep venous thrombosis. 7. History of coronary artery disease. 8. History of myocardial infarction in the past. 9. History of sigmoid colectomy with colostomy for ischemic colitis. 10.History of multiple small bowel obstructions in the past. 11.Diabetes mellitus. 12.Migraine headaches. 13.History of cholecystectomy, Brandon fundoplication, hysterectomy. 14.History of hypercholesterolemia. PLAN: The patient has no evidence for an acute surgical abdomen at this time. Her abdomen Consultation Report [address] [place]. [address] NAME: ROBERTO JOYNER : 46 STATUS : ADM IN PAT#: [id number] AGE: 66 ADM/REG DATE : 09/05/16 MR#: [id number] REPORT SERV DATE: 09/06/16 DICTATED BY: KEEGAN LOVETT III DATE: 09/06/16 REPORT STATUS : Draft TRANSCRIBED BY: RAMONA DATE: 09/06/16 is soft and completely nontender. I believe the patient may have some undiagnosed etiology for her recurrent episodes of pain, flushing, and leukocytosis. She did have porphyrins in the past, which were elevated and it is possible that this may be associated with her symptoms. I defer further workup regarding this to the Hospitalist. We will follow the patient with you. At this time, she has no evidence for mechanical obstruction or acute surgical process. This plan has been discussed with the patient and her , they understand, and again, we will follow her during this hospitalization. Thank you for this consult. ABDULLAHI/RAMONA Keegan Lovett III, M.D. / [id number] CC: MD Vasiliy Chacon M.D.
--- NOTE | ~2016-09-05 | CN ---
Consultation Report [address] [place] [place]. [address] NAME: ROBERTO JOYNER : 46 STATUS : ADM IN PAT#: [id number] AGE: 66 ADM/REG DATE : 09/05/16 MR#: [id number] REPORT SERV DATE: 09/06/16 DICTATED BY: BRYANT RESENDEZ DATE: 09/06/16 REPORT STATUS : Draft TRANSCRIBED BY: MODL DATE: 09/06/16 CONSULTATION DATE OF CONSULTATION: HISTORY OF PRESENT ILLNESS: This patient is well known to me with a history of ischemic colitis resulting in a colostomy. Also, she has had a history of a hostile abdomen, recurrent small-bowel obstructions. She has had episodes for years of abdominal pain spiking high blood pressure, pain, and redness. She has been worked up for carcinoid pheochromocytoma. She has also been worked up for an intestinal ischemia. She has also been worked for porphyria. She was recently hospitalized with small bowel obstruction and had an NG tube placed. This episode had started a few days prior to admission with abdominal pain and unable to eat. She does have a Brandon fundoplication. She is on Duragesic patch at home which seems to control the abdominal pain. CT here was unremarkable. PHYSICAL EXAMINATION: VITAL SIGNS: Blood pressure 180/70, mildly flushed, pulse 80. SKIN: Warm and dry. GENERAL: Looks comfortable. CHEST: Clear to A and P. CARDIAC: Normal. ABDOMEN: Quite soft AND nontender. IMPRESSION: Chronic abdominal pain, probably related to hostile abdomen and adhesions. No evidence of a bowel obstruction at this point. She has been having bowel movements. PLAN: 1. Advance diet. 2. Needs good pain control as with increased abdominal pain her blood pressure spikes. 3. We will follow along with you. 4. She does not seem to require surgical intervention at this point. In fact, surgery would be a last resort given her hostile abdomen. MG/MODL Bryant Resendez M.D. / [id number] CC: Consultation Report [address] [place] [address] NAME: ROBERTO JOYNER : 46 STATUS : ADM IN PAT#: [id number] AGE: 66 ADM/REG DATE : 09/05/16 MR#: [id number] REPORT SERV DATE: 09/06/16 DICTATED BY: BRYANT RESENDEZ DATE: 09/06/16 REPORT STATUS : Draft TRANSCRIBED BY: MODL DATE: 09/06/16 MD Vasiliy Chacon M.D.
[~2016-09-05 09:21] MED LIST changes: +COZ25 PO; +LIPITOR20; +PERCOGESIC PO; +VALSARTAN/HCTZ
[2016-09-05 09:55] LABS: BASOPHILS 0.2 %; BASOPHILS ABSOLUTE 0.04 10/3/uL (0.0-0.16); EOSINOPHILS 0.3 %; EOSINOPHILS ABSOLUTE 0.06 10/3/uL (0.0-0.53); HEMOGLOBIN 14.1 g/dL (12.0-16.0); IMMATURE GRANULOCYTES 0.4 %; IMMATURE GRANULOCYTES ABSOLUTE 0.08 10/3/uL (0.0-0.11); MEAN CORPUS HGB CONC 36.2 g/dL (32.0-36.0); MEAN CORPUSCULAR HEMOGLOB 33.1 pg (26.0-34.0); MEAN PLATELET VOLUME 9.5 fL (9.2-13.0); MONOCYTES 4.8 %; MONOCYTES ABSOLUTE 1.01 10/3/uL (0.21-1.20); NEUTROPHILS 76.3 %; RBC DISTRIBUTION WIDTH 12.9 % (12.0-16.0); RED CELL COUNT 4.26 10/6/uL (4.0-5.6)
[2016-09-05 09:56] LABS: ER CBC TAT 0 Hrs 06 MinsNP; HEMATOCRIT 38.9 % (36.0-48.0); MANUAL DIFF NO %; MEAN CORPUSCULAR VOLUME 91.3 fL (80-100); PLATELET COUNT 353 10/3/uL (150-400); WHITE BLOOD CELLS 21.1 10/3/uL (4.5-10.5)
[2016-09-05 10:10] LABS: ALKALINE PHOSPHATASE 128 U/L (45-117); CALCIUM, SERUM 10.1 MG/DL (8.5-10.4); CHLORIDE, SERUM 101 MMOL/L (96-112); CO2 (CARBON DIOXIDE) 19 MMOL/L (24-34); GLUCOSE, SERUM 235 MG/DL (60-99); SGOT(AST) 17 U/L (5-40); SGPT(ALT) 19 U/L (5-65); SODIUM, SERUM 139 MMOL/L (135-148); TOTAL BILIRUBIN 0.8 MG/DL (0-1.2)
[2016-09-05 10:11] LABS: A/G RATIO 1.1 (0.7-1.9); ALBUMIN 4.8 G/DL (3.5-5.0); BUN (BLOOD UREA NITROGEN) 50 MG/DL (6-23); CREATININE 2.08 MG/DL (0.55-1.02); GFR AFRICAN AMERICAN 28 ML/MIN (>=60); GFR NON AFRICAN AMERICAN 24 ML/MIN (>=60); GLOBULIN 4.5 G/DL (2.5-4.1); POTASSIUM, SERUM 4.6 MMOL/L (3.5-5.3); TOTAL PROTEIN 9.3 G/DL (6.0-8.5)
[2016-09-05 10:12] LABS: LACTATE 4.9 MMOL/L (0.3-2.4)
[2016-09-05 10:44] LABS: ASCORBIC ACID (UR NOT ORDER) 40 (NEG); BILIRUBIN, URINE NEGATIVE (NEG); ER URINALYSIS TAT 0 Hrs 09 Mins; KETONE, URINE TRACE MG/DL (NEG); LEUKOCYTE ESTERASE(NOT OR NEG (NEG); NITRITE (URINE) NEG (NEG); WBC (NOT ORDERED) (RFLEX) 1 (0-5)
[2016-09-05] MEDS ORDERED: ASAB PO (12:15)
[2016-09-05] MEDS ORDERED: PERCOGESIC TAB1 TAB PO (12:15)
[2016-09-05] MEDS ORDERED: CAT1 PO (12:16)
[2016-09-05] MEDS ORDERED: DIMENHY50I PO (12:17)
[2016-09-05] MEDS ORDERED: IMDUR30 PO (12:18)
[2016-09-05] MEDS ORDERED: COZ25 PO (12:18)
[2016-09-05] MEDS ORDERED: GLUCOPHAGE1000 MG PO (12:19)
[2016-09-05] MEDS ORDERED: BYSTOLIC10 MG PO (12:20)
[2016-09-05] MEDS ORDERED: KLOR-CON 1010 MEQ PO (12:20)
[2016-09-05] MEDS ORDERED: PR25 PO (12:21)
[2016-09-05] MEDS ORDERED: DURA25 TOP (12:21)
[2016-09-05] MEDS ORDERED: ZANAFLEX 4 MG TA4 MG PO (12:22)
[2016-09-05] MEDS ORDERED: BYDUREON2 MG SQ (12:22)
[2016-09-05] MEDS ORDERED: ATV1 PO (12:23)
[2016-09-05] MEDS ORDERED: MULTIVITAMI1 PO (12:23)
[2016-09-05 19:23] LABS: PROCALCITONIN 0.12 ng/mL (<0.5)
[2016-09-06 07:32] LABS: BASOPHILS 0.3 %; BASOPHILS ABSOLUTE 0.04 10/3/uL (0.0-0.16); EOSINOPHILS 0.3 %; EOSINOPHILS ABSOLUTE 0.05 10/3/uL (0.0-0.53); HEMATOCRIT 37.5 % (36.0-48.0); HEMOGLOBIN 12.8 g/dL (12.0-16.0); IMMATURE GRANULOCYTES 0.3 %; IMMATURE GRANULOCYTES ABSOLUTE 0.05 10/3/uL (0.0-0.11); LYMPHOCYTES 28.7 %; LYMPHOCYTES ABSOLUTE 4.13 10/3/uL (0.67-4.30); MEAN CORPUSCULAR HEMOGLOB 32.2 pg (26.0-34.0); MEAN PLATELET VOLUME 9.3 fL (9.2-13.0); MONOCYTES 6.4 %; MONOCYTES ABSOLUTE 0.92 10/3/uL (0.21-1.20); PLATELET COUNT 279 10/3/uL (150-400); RBC DISTRIBUTION WIDTH 13.3 % (12.0-16.0); RED CELL COUNT 3.98 10/6/uL (4.0-5.6); WHITE BLOOD CELLS 14.4 10/3/uL (4.5-10.5)
[2016-09-06 07:33] LABS: MANUAL DIFF NO %; MEAN CORPUS HGB CONC 34.1 g/dL (32.0-36.0); MEAN CORPUSCULAR VOLUME 94.2 fL (80-100)
[2016-09-06 07:51] LABS: BUN (BLOOD UREA NITROGEN) 27 MG/DL (6-23); CALCIUM, SERUM 9.2 MG/DL (8.5-10.4); CHLORIDE, SERUM 104 MMOL/L (96-112); CO2 (CARBON DIOXIDE) 17 MMOL/L (24-34); CREATININE 1.32 MG/DL (0.55-1.02); GFR AFRICAN AMERICAN 48 ML/MIN (>=60); GFR NON AFRICAN AMERICAN 41 ML/MIN (>=60); GLUCOSE, SERUM 136 MG/DL (60-99); POTASSIUM, SERUM 4.3 MMOL/L (3.5-5.3); SODIUM, SERUM 140 MMOL/L (135-148)
[2016-09-07 04:28] LABS: BASOPHILS 0.4 %; BASOPHILS ABSOLUTE 0.03 10/3/uL (0.0-0.16); EOSINOPHILS 3.6 %; EOSINOPHILS ABSOLUTE 0.26 10/3/uL (0.0-0.53); IMMATURE GRANULOCYTES 0.3 %; IMMATURE GRANULOCYTES ABSOLUTE 0.02 10/3/uL (0.0-0.11); LYMPHOCYTES 35.2 %; LYMPHOCYTES ABSOLUTE 2.58 10/3/uL (0.67-4.30); MEAN CORPUS HGB CONC 34.1 g/dL (32.0-36.0); MEAN CORPUSCULAR HEMOGLOB 32.7 pg (26.0-34.0); MEAN CORPUSCULAR VOLUME 96.1 fL (80-100); MEAN PLATELET VOLUME 8.9 fL (9.2-13.0); MONOCYTES 6.1 %; MONOCYTES ABSOLUTE 0.45 10/3/uL (0.21-1.20); NEUTROPHILS 54.4 %; NEUTROPHILS ABSOLUTE 3.98 10/3/uL (2.02-8.40); PLATELET COUNT 206 10/3/uL (150-400); RED CELL COUNT 3.36 10/6/uL (4.0-5.6)
[2016-09-07 04:32] LABS: HEMATOCRIT 32.3 % (36.0-48.0); MANUAL DIFF NO %; WHITE BLOOD CELLS 7.3 10/3/uL (4.5-10.5)
[2016-09-07 04:40] LABS: CALCIUM, SERUM 9.1 MG/DL (8.5-10.4); CHLORIDE, SERUM 107 MMOL/L (96-112); CREATININE 1.01 MG/DL (0.55-1.02); GFR AFRICAN AMERICAN 66 ML/MIN (>=60); GFR NON AFRICAN AMERICAN 57 ML/MIN (>=60); GLUCOSE, SERUM 127 MG/DL (60-99); POTASSIUM, SERUM 3.8 MMOL/L (3.5-5.3); SODIUM, SERUM 141 MMOL/L (135-148)
[2016-09-07 04:50] LABS: BUN (BLOOD UREA NITROGEN) 19 MG/DL (6-23); CO2 (CARBON DIOXIDE) 23 MMOL/L (24-34)
[2016-09-08 05:40] LABS: BASOPHILS 0.3 %; BASOPHILS ABSOLUTE 0.03 10/3/uL (0.0-0.16); EOSINOPHILS ABSOLUTE 0.35 10/3/uL (0.0-0.53); HEMATOCRIT 32.7 % (36.0-48.0); HEMOGLOBIN 11.3 g/dL (12.0-16.0); IMMATURE GRANULOCYTES 0.3 %; IMMATURE GRANULOCYTES ABSOLUTE 0.03 10/3/uL (0.0-0.11); LYMPHOCYTES 17.9 %; LYMPHOCYTES ABSOLUTE 2.12 10/3/uL (0.67-4.30); MEAN CORPUS HGB CONC 34.6 g/dL (32.0-36.0); MEAN CORPUSCULAR HEMOGLOB 32.8 pg (26.0-34.0); MEAN CORPUSCULAR VOLUME 95.1 fL (80-100); MEAN PLATELET VOLUME 9.3 fL (9.2-13.0); MONOCYTES 8.5 %; MONOCYTES ABSOLUTE 1.01 10/3/uL (0.21-1.20); NEUTROPHILS ABSOLUTE 8.29 10/3/uL (2.02-8.40); PLATELET COUNT 237 10/3/uL (150-400); RED CELL COUNT 3.44 10/6/uL (4.0-5.6)
[2016-09-08 05:44] LABS: MANUAL DIFF NO %; WHITE BLOOD CELLS 11.8 10/3/uL (4.5-10.5)
[2016-09-08 05:52] LABS: BUN (BLOOD UREA NITROGEN) 9 MG/DL (6-23); CALCIUM, SERUM 9.4 MG/DL (8.5-10.4); CHLORIDE, SERUM 107 MMOL/L (96-112); CO2 (CARBON DIOXIDE) 23 MMOL/L (24-34); CREATININE 0.98 MG/DL (0.55-1.02); GFR AFRICAN AMERICAN 69 ML/MIN (>=60); GFR NON AFRICAN AMERICAN 59 ML/MIN (>=60); GLUCOSE, SERUM 137 MG/DL (60-99); PHOSPHORUS, SERUM 3.3 MG/DL (2.5-4.5); POTASSIUM, SERUM 4.1 MMOL/L (3.5-5.3); SODIUM, SERUM 139 MMOL/L (135-148)
[2016-09-08] MEDS ORDERED: LEVAQUIN750 MG PO (12:31)
[2017-03-11] MEDS ORDERED: ZANAFLEX 4 MG TA4 MG PO (13:27)
[2017-03-11] MEDS ORDERED: BYDUREON2 MG SQ (13:27)
[2017-03-11] MEDS ORDERED: PR25 PO (13:27)
[2017-03-11] MEDS ORDERED: LIPITOR20 PO (13:28)
[2017-03-11] MEDS ORDERED: KDUR10 PO (13:29)
[2017-03-11] MEDS ORDERED: DURA25 TOP (13:29)
[2017-03-11] MEDS ORDERED: BYSTOLIC10 MG PO (13:29)
[2017-03-11] MEDS ORDERED: DIOVAN HC2 PO (13:29)
[2017-03-11] MEDS ORDERED: GLUCOPHAGE1000 MG PO (13:30)
[2017-03-11] MEDS ORDERED: PERCOGESIC TAB1 TAB PO (13:30)
[2017-03-11] MEDS ORDERED: ASAB PO (13:30)
[2017-03-14] MEDS ORDERED: IMDUR30 PO (09:24)
== END 2016-09-08 13:44 | disposition home or self-care (01) | DRG 394 ==
LOC: ER 09:21 → 7NO 15:29
PROVIDERS: Emergency Medicine; Internal Medicine; Nurse Practitioner Acute Care; Surgery
DX: K66.0 Peritoneal adhesions (postprocedural) (postinfection) (principal); N17.9 Acute kidney failure, unspecified; E87.2 Acidosis; M34.9 Systemic sclerosis, unspecified; I50.32 Chronic diastolic (congestive) heart failure; I11.0 Hypertensive heart disease with heart failure; K56.7 Ileus, unspecified; E11.9 Type 2 diabetes mellitus without complications; K21.9 Gastro-esophageal reflux disease without esophagitis; F41.9 Anxiety disorder, unspecified; F32.9 Major depressive disorder, single episode, unspecified; I25.2 Old myocardial infarction; E86.0 Dehydration; I25.10 Atherosclerotic heart disease of native coronary artery without angina pectoris; G89.29 Other chronic pain; G43.909 Migraine, unspecified, not intractable, without status migrainosus; M54.9 Dorsalgia, unspecified; Z90.49 Acquired absence of other specified parts of digestive tract; Z86.010 Personal history of colon polyps; Z90.710 Acquired absence of both cervix and uterus; Z79.82 Long term (current) use of aspirin; Z87.891 Personal history of nicotine dependence; Z86.718 Personal history of other venous thrombosis and embolism; Z87.440 Personal history of urinary (tract) infections
CPT/HCPCS: 74020; 74176; 80048; 80053; 81001; 81050; 82542; 82962; 83497; 83605; 83690; 83735; 84100; 84145; 84202; 85025; 85379; 85652; 87040; 93005; 96365; 96375; 99291; A9270-GY; J1170; J2405; J2543

== ENCOUNTER 2016-11-21 10:05 | Inpatient (IN) | payer MEDICARE, OTHER ==
--- NOTE | ~2016-11-21 | HP ---
History And Physical [id number] [place]. [address] NAME: ROBERTO JOYNER : 46 STATUS : ADM IN [facility]#: [id number] AGE: 66 ADM/REG DATE : 11/21/16 MR#: [id number] REPORT SERV DATE: 11/21/16 DICTATED BY: LOAN GARVEY DATE: 11/21/16 REPORT STATUS : Draft TRANSCRIBED BY: MODL DATE: 11/21/16 DATE OF ADMISSION: 11/21/2016 ATTENDING PHYSICIAN: Dr. Fine. EXAMINING PHYSICIAN: Dr. Garvey. REASON FOR ADMISSION: Abdominal pain, vomiting, and bowel obstruction. HISTORY OF PRESENT ILLNESS: This is a 66-year-old white female, who had some vomiting early this morning. She has had abdominal pain since that time and hard distention of her mid abdomen. She does have a history of multiple adhesions in the past. She has had previous colectomy with 2 surgeries in the past. She was hospitalized in August from 03/08 to 03/14 with a similar episode. She did have an elevated lactate at that time. She was given IV antibiotics and actually improved. Dr. Ortiz saw her in the emergency room initially and called Dr. Monroe. She has seen Dr. Linn in the past. Dr. Monroe is covering for him. She does have leukocytosis and elevated lactate; however, Dr. Monroe recommended no antibiotics at this time and he would see her presently. She has had colectomy of the sigmoid colon due to ischemic colitis. She does have a history of scleroderma as well and there was some consideration of vasospasm of that region causing the ischemic colitis though she has been seen by Dr. Linn and noted to have resolution with NG tube decompression and IV fluid support from the prior hospitalization. PAST MEDICAL HISTORY: Multiple hospitalizations for small-bowel obstruction. She has had a cholecystectomy and hysterectomy; foot surgery; appendectomy; and lysis of adhesions for the obstruction in the past. She had severe reflux esophagitis and had a Brandon fundoplication. She says she cannot vomit since she had the Brandon fundoplication previously. She has coronary artery disease with negative cardiac catheterization in 2016. She has had ischemic colitis operated on by Dr. Linn, previously Dr. Armenta has been following her for a long period of time. She does have a history of diabetes and had been on Bydureon in the past. She is on the following medications: 1. Percogesic 2 tablets p.r.n. pain. 2. Artificial Tears for dry eyes p.r.n. 3. Aspirin 81 mg p.o. daily. 4. Atorvastatin 20 mg p.o. daily. 5. Bydureon extended release 2 mg subcu every 7 days. 6. Fentanyl 25 mcg patch, she changes it every 72 hours. 7. Metformin 1000 mg with breakfast and supper. 8. Bystolic 10 mg p.o. b.i.d. History And Physical [address] [address] NAME: ROBERTO JOYNER : 46 STATUS : ADM IN [facility]#: [id number] AGE: 66 ADM/REG DATE : 11/21/16 MR#: [id number] REPORT SERV DATE: 11/21/16 DICTATED BY: LOAN GARVEY DATE: 11/21/16 REPORT STATUS : Draft TRANSCRIBED BY: RAMONA DATE: 11/21/16 9. Afrin nasal spray every 12 hours. 10.Penicillin-VK 500 mg p.o. q.6 hours. 11.Potassium 10 mEq p.o. daily. 12.Valsartan HCT 1 p.o. daily, it was 320/12.5. ALLERGIES: NONE KNOWN. SOCIAL HISTORY: She is . Lives with her in [place]. They attend [employer] in [place]. She has two sons. No alcohol. She quit smoking in 1989. FAMILY HISTORY: Her mother at age 58 of a heart attack. Her father at age 84 of prostate cancer. Brother 52 with cancer and sister with lung cancer. There is a family history of diabetes as positive. REVIEW OF SYSTEMS: Abdominal pain, flushing, high blood pressure are typical presentations with her. She does have history of scleroderma. She has a cut on her left index finger medially when she was cutting a tomato. There is some redness in and around that. She has had no melena or hematemesis. She is unable to vomit. No fits, seizures, convulsions, or unilateral weakness. She is nauseated but having no diarrhea. Dr. Ortiz had an NG-tube placed. The patient has had 500 mL of drainage already since placement. She has had no chest pain or shortness of breath. No hemoptysis, fever, chills, or night sweats. The remainder of the review of systems is negative. PHYSICAL EXAMINATION: VITAL SIGNS: Blood pressure 186/75, respiratory rate 18, afebrile. HEENT: EOMI. Sclerae clear. Conjunctivae pink. NECK: No bruit without any JVD. CHEST: Clear to A and P. HEART: Regular S1, S2 without murmur, gallop, or click. ABDOMEN: Firm. Bowel sounds positive. The colostomy bag is distended with gas in the left upper quadrant. The mid part of the abdomen on the right side is very firm. EXTREMITIES: Have trace edema. Distal pulses at the dorsalis pedis, posterior tibial. SKIN: There is a red rubric appearance to her rash, appearance that does eun. There are palpable lesions on her arm but no purpura. LYMPHATICS: There is no adenopathy. LABORATORY DATA: 1. The CT scan of the abdomen shows evidence of small bowel distention and small caliber terminal ileum, most consistent with low-grade small bowel obstruction prior to the ileum with normal colostomy, fatty liver. 2. The urine specific gravity was 1.014, pH 6, urine glucose greater than 500 mg%. Lactic acid level was 5. The sodium 136, potassium 4.6, creatinine 1.47, BUN 25, glucose 264, total protein 9, albumin is 4.6. Troponin less than 0.04. [place] 319[place] [address], hemoglobin 14.5, hematocrit of 41.7, and platelets were 341,000. 3. INR 1.1. History And Physical [address] [address] NAME: ROBERTO JOYNER : 46 STATUS : ADM IN [facility]#: [id number] AGE: 66 ADM/REG DATE : 11/21/16 MR#: [id number] REPORT SERV DATE: 11/21/16 DICTATED BY: LOAN GARVEY DATE: 11/21/16 REPORT STATUS : Draft TRANSCRIBED BY: RAMONA DATE: 11/21/16 ASSESSMENT: 1. Small bowel obstruction. NG tube is now decreased to 500 mL and she is starting to feel better. This should help some of the nausea. We will continue the IV fluid and the NG tube suction. Dr. Monroe has been consulted. He plans to see her later today. 2. History of colostomy, generalized. 3. History of ischemic colitis. 4. Rubor with diffuse skin rash and history of scleroderma. I suspect these two may be related. 5. Diabetes type 2. 6. Dehydration with elevation of creatinine 1.46. Her creatinine at discharge was 0.98, now up to 1.46. 7. Hypertension, uncontrolled. Will use IV hydralazine as Dr. Krishan Ortiz started in the emergency room. 8. Home medications will be checked off by the patient with an NG tube. Will have difficulty taking these. We will continue with Bystolic and have her clamp the two afterwards. 9. We are planning to use NG tube suction; IV fluid; pain medication; and then control blood pressure with parenteral means. We will add a Catapres-TTS patch. Dr. King will see later today. 10.Dehydration. Her creatinine is up from 0.9 to 1.46. DICTATION ENDS HERE DB/MODL Loan Garvey M.D. / [id number] CC: Vasiliy Caldwell M.D. Jennifer Leach M.D. Eliezer Linn III, M.D.
--- NOTE | ~2016-11-21 | CN ---
Consultation Report [address] [id number] [facility] [place]. [address] NAME: ROBERTO JOYNER : 46 STATUS : ADM IN PAT#: [id number] AGE: 66 ADM/REG DATE : 11/21/16 MR#: [id number] REPORT SERV DATE: 11/22/16 DICTATED BY: KEEGAN LOVETT III DATE: 11/22/16 REPORT STATUS : Draft TRANSCRIBED BY: MODL DATE: 11/22/16 CONSULTATION DATE OF CONSULTATION: 11/22/2016 REASON FOR CONSULTATION: 1. Possible small bowel obstruction. 2. Abdominal pain with nausea and vomiting. HISTORY OF PRESENT ILLNESS: I am asked to see this 66-year-old female hospitalized for the above reasons. The patient has a history of recurrent small bowel obstructions and admission for this and ileus. The patient complains of abdominal pain, which began early on the morning of admission. This was associated with some nausea and vomiting. The patient presented to the emergency room and a CT scan of the abdomen and pelvis was performed, which showed evidence for partial small bowel obstruction. It was felt that admission to the hospital was indicated. The patient has a history of previous sigmoid colectomy performed for ischemic colitis. She was recently admitted in August of this year with similar complaints. PAST MEDICAL HISTORY: 1. History of recurrent small bowel obstructions in the past. 2. History of ischemic colitis, requiring colectomy with colostomy. 3. History of colostomy closure followed by replacement of the colostomy. 4. Anxiety. 5. Depression. 6. Hypertension. 7. Diabetes mellitus. 8. Coronary artery disease. 9. History of myocardial infarction in the past. 10.Migraine headaches. 11.Hypercholesterolemia. 12.History of hiatal hernia repair with Brandon fundoplication. 13.History of deep venous thrombosis in the past. 14.History of chronic back pain. 15.History of congestive heart failure. MEDICATIONS: Include aspirin, Lipitor, clonidine, Dramamine, Percogesic, metformin, Bystolic, potassium, and valsartan. SOCIAL HISTORY: The patient is , retired, and lives locally. She has a previous Consultation Report [address] [place] [id number] [facility] [place]. [address] NAME: ROBERTO JOYNER : 46 STATUS : ADM IN PAT#: [id number] AGE: 66 ADM/REG DATE : 11/21/16 MR#: [id number] REPORT SERV DATE: 11/22/16 DICTATED BY: KEEGAN LOVETT III DATE: 11/22/16 REPORT STATUS : Draft TRANSCRIBED BY: MODL DATE: 11/22/16 history of tobacco abuse. She has no history of alcohol use. FAMILY HISTORY: Positive for coronary artery disease and prostate cancer. REVIEW OF SYSTEMS: Otherwise unremarkable. In addition to above medications, it should be noted the patient uses a fentanyl patch. ALLERGIES: NONE. FAMILY HISTORY: Positive for myocardial infarction. PHYSICAL EXAMINATION: GENERAL: This is a female, in no acute distress. She has chronic facial flushing. She is alert and oriented x3. VITAL SIGNS: Blood pressure 150/70, temperature 99.2, and pulse 86. HEENT: Otherwise unremarkable. NEUROLOGIC: Cranial nerves 2 through 12 are normal. LUNGS: Clear. CARDIAC: Normal. ABDOMEN: Soft and nontender. EXTREMITIES: Normal with no edema. LABORATORY DATA: CT scan of abdomen and pelvis, which I reviewed shows evidence for possible mid small bowel distention suggesting a possible low-grade partial small bowel obstruction. Fatty infiltration of the liver is noted. Electrolytes are unremarkable. Glucose is elevated 201. White blood cell count was elevated at 23,000. Hematocrit 41. ASSESSMENT: 66-year-old female with: 1. Probable partial small bowel obstruction. The patient has no evidence for mesenteric ischemia or need for acute surgical intervention at this time. 2. History of multiple small bowel obstructions in the past. 3. History of coronary artery disease. 4. History of ischemic colitis requiring previous sigmoid colectomy with colostomy. 5. Depression. 6. Hypertension. 7. Diabetes mellitus. 8. History of myocardial infarction in the past. 9. History of migraine headaches. 10.History deep venous thrombosis in the past. 11.Congestive heart failure. 12.Chronic back pain requiring chronic narcotics. PLAN: The patient is stable at this time. She has been admitted and started on parenteral Consultation Report [address] [place]. [address] NAME: ROBERTO JOYNER : 46 STATUS : ADM IN [facility]#: [id number] AGE: 66 ADM/REG DATE : 11/21/16 MR#: [id number] REPORT SERV DATE: 11/22/16 DICTATED BY: KEEGAN LOVETT III DATE: 11/22/16 REPORT STATUS : Draft TRANSCRIBED BY: MODBryant DATE: 11/22/16 fluids and bowel rest and NG suction. A small bowel series is pending for today. We will follow the patient with you. At this time, there is no indication of need for surgical intervention, and hopefully, this can be managed nonoperatively. The etiology for her elevated white blood cell count is unclear to me but at this time again, the patient has no evidence for peritonitis or need for acute surgical intervention. This plan has been explained to the patient. Her questions have been answered. She understands and agrees to this plan. RHJ/RAMONA Keegan Lovett III, M.D. / [id number] CC: MD Vasiliy Chacon M.D.
--- NOTE | ~2016-11-21 | DS ---
Discharge Summary [facility] [address] [place]. [address] NAME: ROBERTO JOYNER : 46 STATUS : ADM IN [facility]#: [id number] AGE: 66 ADM/REG DATE : 11/21/16 MR#: [id number] REPORT SERV DATE: 11/23/16 DICTATED BY: MAGI WINKLER DATE: 11/23/16 REPORT STATUS : Draft TRANSCRIBED BY: MODL DATE: 11/23/16 ADMISSION DATE: 11/21/2016 DISCHARGE DATE: 11/23/2016 CONDITION ON DISCHARGE: Stable. DISPOSITION: Discharged to home. ADVICE ON DISCHARGE: To follow up with PCP within the next one to two weeks. DIAGNOSES ON DISCHARGE: 1. Partial small bowel obstruction above the level of [id number] patient is being advanced to soft GI diet today and if she tolerates it, the plan is to send her home. 2. History of ischemic colitis, status post partial colon resection, colostomy status right now. 3. History of multiple adhesions in the past. Other diagnoses that are stable at this time include: 1. Chronic abdominal pain for which she is dependent on narcotics chronically. 2. Diarrhea off and on, actually diarrhea alternating with constipation probably secondary to chronic opioid use and use of stool softeners along with the opioid on an erratic basis. This should correct itself as the patient states that she knows herself real well and she is able to manage on her own at this time. Other diagnoses that are stable again at this time include: 1. Diabetes type 2, which is stable. 2. Scleroderma, which is stable. 3. Hypertension, which is stable at this time. 4. Acute kidney injury which is resolving. BRIEF HOSPITAL COURSE: The patient is a pleasant 66-year-old female patient, who was admitted with signs and symptoms as outlined in history and physical exam. Essentially, she was admitted with abdominal pain and partial small bowel obstruction as seen on CT scan of the abdomen. The patient was placed on NG tube suctioning after both GI and Surgery was consulted. The patient has a history of partial colon resection and is colostomy status. The patient had to have a partial colon resection because of ischemic colitis in the past. Anyhow, the patient was admitted, given supportive care, and her stool was sent off for C diff, O and P and other studies as she did have diarrhea in the colostomy bag. Upon admission, her creatinine was up at 1.4, because of acute kidney injury probably from dehydration from all the diarrhea that she had had in the colostomy bag, but this has improved since the patient has been started on IV fluids. The diarrhea in the colostomy bag also is almost resolved. This patient is being sent home in stable condition with all her medications that she takes at home being resumed completely at this time. However, we will stop her penicillin at this Discharge Summary [address] [place]. [address] NAME: ROBERTO JOYNER : 46 STATUS : ADM IN PAT#: [id number] AGE: 66 ADM/REG DATE : 11/21/16 MR#: [id number] REPORT SERV DATE: 11/23/16 DICTATED BY: MAGI WINKLER DATE: 11/23/16 REPORT STATUS : Draft TRANSCRIBED BY: RAMONA DATE: 11/23/16 time as we do not see a need for that to be continued now. Other than that, the patient will resume all her other home medications as prescribed. The most recent labs that I have on this patient include a CBC that shows a WBC count of 11.2, hemoglobin 12.3, hematocrit 37.4, platelet count of 205. Electrolytes are normal. BUN is 18, creatinine is 0.8 now. Her LFTs are normal. As mentioned above, her stool for occult blood has come back positive. This may have been because of some inflammation from ileitis itself which could have been because of the small bowel obstruction from the partial adhesions. However, her stool for ova and parasites have come back negative for Giardia and Cryptosporidium. Her stool for C diff also has come back negative. Other tests that the patient had include a small bowel follow-through which showed mildly distended small-bowel loops, but no definitive delay in transit to suggest any significant bowel obstruction. Indeed the patient's partial bowel obstruction which may have been secondary to the adhesions anyway resolved. Her NG tube is out and we are advancing her diet and if she tolerates it, we will send her on home. I have spent about 35 to 40 minutes in coordinating discharge care of this patient including [id number] encounter and summarizing this discharge at this time. ADDENDUM: In addition to all this, she also had blood cultures that came back negative with no growth and in addition to this, the patient also had lactate levels that were initially elevated at 2.8, but this was upon admission. We are expecting this to be much lower than that also and at this time, definitely the patient does not need any antibiotics. She is at risk for C diff and we do not need to send her home on any antibiotics as of now. She is stable for discharge and she will follow up with her primary care physician within the next one to two weeks. DICTATED BY: Jennifer Giang/RAMONA Magi Winkler M.D. / [id number] CC: Jennifer Giang M.D.
[2016-11-21 08:55] LABS: BASOPHILS 0.2 %; BASOPHILS ABSOLUTE 0.05 10/3/uL (0.0-0.16); EOSINOPHILS 0.1 %; EOSINOPHILS ABSOLUTE 0.03 10/3/uL (0.0-0.53); IMMATURE GRANULOCYTES 0.5 %; IMMATURE GRANULOCYTES ABSOLUTE 0.12 10/3/uL (0.0-0.11); LYMPHOCYTES 12.2 %; LYMPHOCYTES ABSOLUTE 2.87 10/3/uL (0.67-4.30); MEAN CORPUS HGB CONC 34.8 g/dL (32.0-36.0); MEAN CORPUSCULAR HEMOGLOB 33.4 pg (26.0-34.0); MEAN CORPUSCULAR VOLUME 96.1 fL (80-100); MEAN PLATELET VOLUME 9.6 fL (9.2-13.0); MONOCYTES 4.2 %; NEUTROPHILS 82.8 %; NEUTROPHILS ABSOLUTE 19.55 10/3/uL (2.02-8.40); RBC DISTRIBUTION WIDTH 13.5 % (12.0-16.0)
[2016-11-21 08:58] LABS: ER CBC TAT 0 Hrs 09 Mins; HEMATOCRIT 41.7 % (36.0-48.0); HEMOGLOBIN 14.5 g/dL (12.0-16.0); PLATELET COUNT 348 10/3/uL (150-400); RED CELL COUNT 4.34 10/6/uL (4.0-5.6); WHITE BLOOD CELLS 23.6 10/3/uL (4.5-10.5)
[2016-11-21 08:59] LABS: MANUAL DIFF NO %
[2016-11-21 09:02] LABS: INTERNATIONAL NORMAL RATI 1.1 UNITS (-); PARTIAL THROMBO TIME 23.8 SEC (22.5-37.2); PROTIME (NOT ORD) 13.6 SEC (12.0-14.5)
[2016-11-21 09:12] LABS: ALBUMIN 4.6 G/DL (3.5-5.0); ALKALINE PHOSPHATASE 137 U/L (45-117); CALCIUM, SERUM 10.1 MG/DL (8.5-10.4); CHEST PAIN PROFILE TAT 0 Hrs 23 Mins; CHLORIDE, SERUM 102 MMOL/L (96-112); CO2 (CARBON DIOXIDE) 20 MMOL/L (24-34); CREATININE 1.46 MG/DL (0.55-1.02); GFR AFRICAN AMERICAN 42 ML/MIN (>=60); GFR NON AFRICAN AMERICAN 37 ML/MIN (>=60); POTASSIUM, SERUM 4.6 MMOL/L (3.5-5.3); SGOT(AST) 22 U/L (5-40); SGPT(ALT) 25 U/L (5-65); SODIUM, SERUM 136 MMOL/L (135-148); TOTAL BILIRUBIN 0.4 MG/DL (0-1.2); TROPONIN I <0.02 NG/ML (<0.05)
[2016-11-21 09:16] LABS: ASCORBIC ACID (UR NOT ORDER) NEG (NEG); BILIRUBIN, URINE NEGATIVE (NEG); ER URINALYSIS TAT 0 Hrs 07 Mins; KETONE, URINE NEGATIVE (NEG); LEUKOCYTE ESTERASE(NOT OR NEG (NEG); NITRITE (URINE) NEG (NEG); WBC (NOT ORDERED) (RFLEX) 1 (0-5)
[2016-11-21 09:17] LABS: BUN (BLOOD UREA NITROGEN) 25 MG/DL (6-23); DIRECT BILIRUBIN 0.1 MG/DL (0.0-0.4); GLUCOSE, SERUM 264 MG/DL (60-99); INDIRECT BILIRUBIN(NOT ORDER) 0.3 MG/DL (0.1-0.9)
[~2016-11-21 10:05] MED LIST changes: +BYDUREON2 MG SQ; +GLUCOPHAGE1000 MG PO; +MULTIVITAMI1 PO
[2016-11-21] MEDS ORDERED: KDUR10 PO (10:36)
[2016-11-21] MEDS ORDERED: BYSTOLIC10 MG PO (10:36)
[2016-11-21] MEDS ORDERED: DIOVAN HC2 PO (10:37)
[2016-11-21] MEDS ORDERED: LIPITOR20 PO (10:37)
[2016-11-21] MEDS ORDERED: PENICILLN VK500 MG PO (10:40)
[2016-11-21] MEDS ORDERED: AFRIN15 NAS (10:40)
[2016-11-21] MEDS ORDERED: ASAB PO (10:41)
[2016-11-21] MEDS ORDERED: GLUCOPHAGE1000 MG PO (10:41)
[2016-11-21] MEDS ORDERED: BYDUREON2 MG SQ (10:41)
[2016-11-21] MEDS ORDERED: PERCOGESIC TAB1 TAB PO (10:42)
[2016-11-21] MEDS ORDERED: DURA25 TOP (10:43)
[2016-11-21] MEDS ORDERED: TEARS PLUS OPH (10:44)
[2016-11-21 16:13] LABS: CALCIUM, SERUM 9.7 MG/DL (8.5-10.4); CHLORIDE, SERUM 106 MMOL/L (96-112); CO2 (CARBON DIOXIDE) 23 MMOL/L (24-34); CREATININE 1.07 MG/DL (0.55-1.02); GFR AFRICAN AMERICAN 62 ML/MIN (>=60); GFR NON AFRICAN AMERICAN 53 ML/MIN (>=60); POTASSIUM, SERUM 4.1 MMOL/L (3.5-5.3); SODIUM, SERUM 133 MMOL/L (135-148)
[2016-11-21 16:14] LABS: BUN (BLOOD UREA NITROGEN) 18 MG/DL (6-23); GLUCOSE, SERUM 201 MG/DL (60-99)
[2016-11-23 05:41] LABS: BASOPHILS 0.3 %; BASOPHILS ABSOLUTE 0.03 10/3/uL (0.0-0.16); EOSINOPHILS 1.4 %; EOSINOPHILS ABSOLUTE 0.16 10/3/uL (0.0-0.53); HEMOGLOBIN 12.3 g/dL (12.0-16.0); IMMATURE GRANULOCYTES 0.2 %; IMMATURE GRANULOCYTES ABSOLUTE 0.02 10/3/uL (0.0-0.11); LYMPHOCYTES 27.9 %; LYMPHOCYTES ABSOLUTE 3.12 10/3/uL (0.67-4.30); MEAN CORPUSCULAR HEMOGLOB 32.6 pg (26.0-34.0); MEAN PLATELET VOLUME 9.5 fL (9.2-13.0); MONOCYTES 5.2 %; MONOCYTES ABSOLUTE 0.58 10/3/uL (0.21-1.20); NEUTROPHILS ABSOLUTE 7.27 10/3/uL (2.02-8.40); RBC DISTRIBUTION WIDTH 13.5 % (12.0-16.0); RED CELL COUNT 3.77 10/6/uL (4.0-5.6)
[2016-11-23 05:45] LABS: HEMATOCRIT 37.4 % (36.0-48.0); MEAN CORPUS HGB CONC 32.9 g/dL (32.0-36.0); MEAN CORPUSCULAR VOLUME 99.2 fL (80-100); WHITE BLOOD CELLS 11.2 10/3/uL (4.5-10.5)
[2016-11-23 05:46] LABS: MANUAL DIFF NO %; PLATELET COUNT 205 10/3/uL (150-400)
[2016-11-23 05:59] LABS: BUN (BLOOD UREA NITROGEN) 18 MG/DL (6-23); CALCIUM, SERUM 9.5 MG/DL (8.5-10.4); CHLORIDE, SERUM 101 MMOL/L (96-112); CO2 (CARBON DIOXIDE) 23 MMOL/L (24-34); CREATININE 0.87 MG/DL (0.55-1.02); GFR AFRICAN AMERICAN 79 ML/MIN (>=60); GFR NON AFRICAN AMERICAN 68 ML/MIN (>=60); POTASSIUM, SERUM 3.8 MMOL/L (3.5-5.3); SGOT(AST) 16 U/L (5-40); SGPT(ALT) 18 U/L (5-65); SODIUM, SERUM 137 MMOL/L (135-148); TOTAL PROTEIN 7.4 G/DL (6.0-8.5)
[2016-11-23 06:07] LABS: A/G RATIO 0.9 (0.7-1.9); ALBUMIN 3.6 G/DL (3.5-5.0); ALKALINE PHOSPHATASE 109 U/L (45-117); GLOBULIN 3.8 G/DL (2.5-4.1); GLUCOSE, SERUM 149 MG/DL (60-99); TOTAL BILIRUBIN 0.9 MG/DL (0-1.2)
[2017-03-11] MEDS ORDERED: PR25 PO (13:27)
[2017-03-11] MEDS ORDERED: BYDUREON2 MG SQ (13:27)
[2017-03-11] MEDS ORDERED: ZANAFLEX 4 MG TA4 MG PO (13:27)
[2017-03-11] MEDS ORDERED: LIPITOR20 PO (13:28)
[2017-03-11] MEDS ORDERED: DURA25 TOP (13:29)
[2017-03-11] MEDS ORDERED: DIOVAN HC2 PO (13:29)
[2017-03-11] MEDS ORDERED: KDUR10 PO (13:29)
[2017-03-11] MEDS ORDERED: BYSTOLIC10 MG PO (13:29)
[2017-03-11] MEDS ORDERED: GLUCOPHAGE1000 MG PO (13:30)
[2017-03-11] MEDS ORDERED: ASAB PO (13:30)
[2017-03-11] MEDS ORDERED: PERCOGESIC TAB1 TAB PO (13:30)
[2017-03-14] MEDS ORDERED: IMDUR30 PO (09:24)
== END 2016-11-23 14:31 | disposition home or self-care (01) | DRG 389 ==
LOC: ER 10:05 → 5SO 13:36
PROVIDERS: Emergency Medicine; Internal Medicine
PROC: 30233K1 Transfusion of Nonautologous Frozen Plasma into Peripheral Vein, Percutaneous Approach (ICD-10-PCS; principal; 2016-11-22)
DX: K56.69 Other intestinal obstruction (principal); N17.9 Acute kidney failure, unspecified; F11.90 Opioid use, unspecified, uncomplicated; M34.9 Systemic sclerosis, unspecified; E11.9 Type 2 diabetes mellitus without complications; E86.0 Dehydration; I10 Essential (primary) hypertension; Z90.710 Acquired absence of both cervix and uterus; Z98.890 Other specified postprocedural states; Z90.49 Acquired absence of other specified parts of digestive tract; I25.10 Atherosclerotic heart disease of native coronary artery without angina pectoris; Z79.82 Long term (current) use of aspirin; Z79.899 Other long term (current) drug therapy; Z79.84 Long term (current) use of oral hypoglycemic drugs; Z87.891 Personal history of nicotine dependence; Z82.49 Family history of ischemic heart disease and other diseases of the circulatory system; Z80.42 Family history of malignant neoplasm of prostate; Z80.1 Family history of malignant neoplasm of trachea, bronchus and lung; Z83.3 Family history of diabetes mellitus
CPT/HCPCS: 71010; 74000; 74176; 74250; 80048; 80053; 80076; 81001; 82272; 82962; 83605; 83690; 83735; 84484; 85025; 85610; 85730; 87040; 87328; 87329; 87493; 87493-59; 93005; 96374; 96375; 96376; 99285; A9270-GY; J0360; J1170; J2405; J2550